=== PATIENT | female | born 2000 | race Caucasian/White ===

== ENCOUNTER 2023-11-07 13:42 | Emergency (ER) | payer OTHER, SELFPAY ==
--- NOTE | ~2023-11-07 | XR_ITS ---
XR thoracic spine 3V DATE: 11/07/2023 14:12 INDICATION: Upper back pain after fall 2 weeks ago TECHNIQUE: AP, lateral, swimmer views COMPARISON: None FINDINGS: There is mild thoracic dextroscoliosis. No fracture or dislocation. The thoracic pedicles a re intact. No paraspinal soft tissue thickening. Thoracic interspaces are preserved. IMPRESSION: Mild dextro scoliosis; no fracture Reviewed, dictated and finalized at location L. [facility]
--- NOTE | 2023-11-07 13:44 | ED.BACK ---
HPI - Back Pain/Injury General Chief Complaint: Back Pain/Injury Stated Complaint: Back pain Time Seen by Provider: 11/07/23 13:44 Source: patient Mode of arrival: ambulatory Limitations: no limitations History of Present Illness HPI Narrative: Melissa is a 22-year-old female patient presenting to the clinic today with complaints of thoracic back pain. She reports 2 weeks ago she fell down some steps and injured her lower back at that time. States that her lower back has improved however now she is having pain to her thoracic back. She reports that is nontender palpation however when she runs, jumps, and moves certain ways she is having pain. Related Data Home Medications Medication Instructions Recorded Confirmed clindamycin phosphate 2 % vaginal 1 applic vaginal DIRECTED 11/07/23 11/07/23 cream escitalopram oxalate 10 mg tablet 10 mg PO DAILY 11/07/23 11/07/23 norethindrone 1 mg-ethinyl 1 tablet PO DAILY 11/07/23 11/07/23 estradiol 20 mcg (21)-iron 75 mg (7) tablet (Blisovi Fe 10/28 (28)) sertraline 25 mg tablet 25 mg PO DAILY 11/07/23 11/07/23 Allergies Allergy/AdvReac Type Severity Reaction Status Date / Time No Known Allergies Allergy Verified 11/07/23 14:04 Review of Systems Review of Systems: Pertinent positives per HPI. Patient denies any fever, chills, rash, headache, visual changes, dizziness, cough, runny nose, sore throat, shortness of breath, chest pain, palpitations, nausea, vomiting, diarrhea, constipation, abdominal pain, or any urinary issues. PMFSH Comments At the time of my signature, I reviewed and agree with the nursing past medical, surgical, social, and family history. There is no relevant family history pertinent to the patient complaint. Exam Narrative: General: Well-developed, well nourished, in no apparent distress Head: Normocephalic, atraumatic. Cardio: Regular rate and rhythm, s1 and s2 normal, no murmur appreciated. Resp: Clear to auscultation bilaterally, no rhonchi, rales, wheezing or rubs. Musculoskeletal: No deformity, tender to palpation over the upper thoracic spine in between the shoulder blades., grossly normal range of motion, muscle strength strong and equal, peripheral pulse strong, no edema, no cyanosis, normal gait and station Course Course Emergency Course: Portions of this record may have been created with voice recognition software. Level of Care: Express Care Visit Vital Signs Vital signs: Vital signs reviewed MDM - Back Pain/Injury MDM Narrative Medical decision making narrative: At the time of visit patient is resting comfortably on the exam table. Patient appears to be nontoxic. Diagnostics: X-ray of the thoracic spine was performed. Plan: supportive measures were discussed with the patient and they voiced understanding discharge instructions and agrees to treatment plan. Return precautions reviewed Imaging Data Radiologist's impression: ITS Impressions Thoracic Spine X-Ray 11/07/23 14:15 IMPRESSION: Mild dextro scoliosis; no fracture Discharge Plan Discharge Clinical Impression: Strain of muscle and tendon of back wall of thorax, initial encounter Patient Disposition: Home, Self-Care Condition: Stable Instructions: Antibiotic Form, Thoracic Back Strain (ED) Additional Instructions: X-ray of the thoracic spine shows mild dextroscoliosis without fracture Take any prescription medication only as prescribed-take 600 mg of ibuprofen every 8 hours x1 week. May use heat or ice to the affected area Consider massage or chiropractor adjustment if this was discussed with provider May use blue emu, lidocaine patches, or asper cream to affected area- do not apply heat or ice directly over cream- can cause burn. Complete appropriate back stretching exercises. Follow up with your PCP in 3-5 days if symptom persist. Prescriptions: No Action norethindrone-e.estradiol-iron [Blisovi Fe
[2023-11-07 13:53] VITALS: BP 130/82; PULSE 84; RESP 20; TEMP 36.3; O2SAT 100
== END 2023-11-07 14:30 | disposition home or self-care (01) ==
PROVIDERS: Emergency Provider Nurse Practitioner Family; PCP Internal Medicine
DX: S29.012A Strain of muscle and tendon of back wall of thorax, initial encounter (principal); X58.XXXA Exposure to other specified factors, initial encounter; F32.A Depression, unspecified
CPT/HCPCS: 72072; 99213; G0463

== ENCOUNTER 2023-11-26 08:22 | Emergency (ER) | payer OTHER, SELFPAY ==
[2023-11-26 08:38] VITALS: BP 113/82; PULSE 71; RESP 16; TEMP 36.6; O2SAT 100
--- NOTE | 2023-11-26 09:04 | ED.URI ---
HPI - URI/Sore Throat General Chief Complaint: Upper Respiratory Infection Stated Complaint: Cold symptoms Source: patient, RN notes reviewed and old records reviewed Mode of arrival: ambulatory Limitations: no limitations History of Present Illness HPI Narrative: 22 year female presents to [facility] with complaint of cough, congestion, sore throat, ear pressure this started 6 days ago. Patient states symptoms are improving but feels cough is worsening. Patient states he is in school and needs something for cough. Patient denies chest pain, shortness of breath, dizziness, weakness, fever. Related Data Home Medications Medication Instructions Recorded Confirmed clindamycin phosphate 2 % vaginal 1 applic vaginal DIRECTED 11/07/23 11/26/23 cream escitalopram oxalate 10 mg tablet 10 mg PO DAILY 11/07/23 11/26/23 norethindrone 1 mg-ethinyl 1 tablet PO DAILY 11/07/23 11/26/23 estradiol 20 mcg (21)-iron 75 mg (7) tablet (Blisovi Fe 10/28 (28)) sertraline 25 mg tablet 25 mg PO DAILY 11/07/23 11/26/23 clotrimazole-betamethasone 1 1 applic topical DIRECTED 11/26/23 11/26/23 %-0.05 % topical cream Allergies Allergy/AdvReac Type Severity Reaction Status Date / Time No Known Allergies Allergy Verified 11/26/23 08:57 Review of Systems Constitutional: Constitutional: Reports no additional constitutional complaints, Denies body ache(s), Denies chills, Denies fatigue, Denies fever(s) and Denies headache(s) Eyes: Eyes: Reports no additional eye complaints and Denies blurry vision ENT: Reports system reviewed and no additional complaints, except as documented, Denies vertigo, Denies dizziness, Denies ear discharge, Reports otalgia, Denies facial pain, Denies headache(s), Reports nasal congestion, Reports nasal discharge, Denies sinus pain, Reports sinus pressure and Reports sore throat Cardiovascular: Cardiovascular: Reports no additional cardiovascular complaints, Denies chest pain, Denies chest pain at rest, Denies rapid heart rate and Denies dyspnea Respiratory: Respiratory: Reports no additional respiratory complaints, Denies chest congestion, Reports cough, Denies pain on inspiration, Denies pain with cough and Denies dyspnea Gastrointestinal: Gastrointestinal: Denies abdominal pain, Denies diarrhea, Denies nausea and Denies vomiting Integumentary/Breasts: Skin/Breast: Denies rash Neurologic: Reports system reviewed and no additional complaints, except as documented, Denies vertigo, Denies dizziness and Denies headache(s) Endocrine: Endocrine: Denies fatigue PMFSH Comments At the time of my signature, I reviewed and agree with the nursing past medical, surgical, social, and family history. There is no relevant family history pertinent to the patient complaint. Exam Const: General: cooperative, healthy appearing, no acute distress and well nourished Nutritional Appearance: well nourished Orientation/consciousness: patient oriented x3 Limitations: no limitations HENMT: Head: normal to inspection and normocephalic Ears: external ears normal, TM's normal bilaterally, EAC's normal and mastoids normal Face/Nose/Sinus: normal facial exam Face and sinus: normal facial exam Mouth: Yes Normal oral and palatal mucosa present, Yes oropharynx normal and Yes moist mucous membranes Throat: posterior oropharynx normal, tonsils normal, uvula midline and no uvular edema Eyes: General: appearance normal, both eyes and all related structures Sclera: sclerae normal Pupils: Equal, round and reactive pupils present Resp: Effort & Inspection: normal respiratory effort, able to speak in complete sentences, no audible wheezes, no cough, no respiratory distress and no retractions Auscultation: clear to auscultation bilaterally, no crackles, no rales, no rhonchi and no wheezes Cardio: Rate: regular rate Rhythm: regular rhythm Skin: General skin exam: normal color and no rashes or lesions noted Neuro: General: patient anastacia
== END 2023-11-26 09:12 | disposition home or self-care (01) ==
PROVIDERS: Emergency Provider Registered Nurse
DX: B34.9 Viral infection, unspecified (principal); Z79.899 Other long term (current) drug therapy
CPT/HCPCS: 87081; 87880; 99213; G0463

== ENCOUNTER 2023-12-22 22:59 | Emergency (ER) | payer OTHER, SELFPAY ==
--- NOTE | ~2023-12-22 | XR_ITS ---
EXAMINATION: XR chest 2V DATE: 12/22/2023 23:49 INDICATION: Chest pain and palpitations TECHNIQUE: PA and lateral views of the chest were obtained. COMPARISON: None FINDINGS: The lungs are clear with no focal airspace opacities, pulmonary edema, pleural effusion or pneumothor ax. The cardiomediastinal silhouette is normal. Visualized bones and soft tissues are unremarkable. IMPRESSION: 1. No acute cardiopulmonary disease. Reviewed, dictated and finalized at location A.
--- NOTE | 2023-12-22 23:00 | ECG_ITS ---
Measurements Intervals [place] Rate: 73 P: 66 NV: 141 QRS: 93 QRSD: 101 T: 47 QT: 406 QTc: 448 Interpretive Statements SINUS RHYTHM WITH SINUS ARRHYTHMIA RIGHT AXIS DEVIATION INCOMPLETE RIGHT BUNDLE BRANCH BLOCK MINIMAL Q WAVES- INF/LAT LEADS BORDERLINE ECG NO PREVIOUS ECG AVAILABLE FOR COMPARISON Electronically Signed On 12-23-2023 7:50:45 CDT by Jevon Rose D.O.
[2023-12-22 23:04] VITALS: BP 115/74; PULSE 76; RESP 14; TEMP 36.4; O2SAT 100
[2023-12-22 23:18] LABS: Basophils Absolute Auto 0.1 K/mm3 (0.0-0.1); Basophils Percent Auto 0.7 % (0.2-1.2); Eosinophils Absolute Auto 0.3 K/mm3 (0-0.3); Eosinophils Percent Auto 2.8 % (0-4.4); Hematocrit 40.6 % (37.0-47.0); Immature Granulocyte Absolute 0.01 K/mm3 (0.00-0.031); Immature Granulocyte Percent A 0.1 % (0-0.5); Lymphocytes Percent Auto 45.4 % (18.3-44.2); Mean Corpuscular Hemoglobin 27.5 pg (26-34); Mean Corpuscular Volume 85.8 fl (80-100); Mean Platelet Volume 8.8 fl (7.4-10.4); Monocytes Absolute Auto 0.6 K/mm3 (0.1-0.6); Monocytes Percent Auto 6.5 % (2.6-8.5); Neutrophils Absolute Auto 3.9 K/mm3 (1.3-6.7); Neutrophils Percent Auto 44.5 % (45.5-73.1); Platelet Count Result 210 k/mm3 (150-375); Red Blood Count 4.73 M/mm3 (4.2-5.4); Red Cell Distribution Width 13.1 % (11.5-14.5); White Blood Count 8.8 K/mm3 (4.5-10.0)
[2023-12-22 23:28] LABS: Prothrombin Time 13.4 Seconds (11.1-14.7)
[2023-12-22 23:29] LABS: Partial Thromboplastin Time 32.9 Seconds (22.3-36.8)
[2023-12-22 23:31] LABS: Alanine Aminotransferase 47 U/L (6-35); Albumin Level 4.6 g/dL (3.5-5.1); Alkaline Phosphatase 62 U/L (38-126); Anion Gap 9 mmol/L (8-16); Aspartate Amino Transferase 33 U/L (14-36); Bilirubin,Total 0.3 mg/dL (0.2-1.3); Blood Urea Nitrogen 9 mg/dL (7-17); Calcium 9.5 mg/dL (8.4-10.2); Carbon Dioxide 25 mmol/L (22-30); Chloride 103 mmol/L (98-107); Estimated CRCL calculation 85 ml/min; Estimated Glomerular Filt Rate > 60; Glucose 111 mg/dL (65-110); Lipase 68 U/L (23-300); Potassium 3.8 mmol/L (3.4-5.0); Sodium 137 mmol/L (137-145)
[2023-12-22 23:41] LABS: Troponin I < 0.012 ng/mL (0.000-0.034)
[2023-12-23 00:07] VITALS: O2SAT 100
--- NOTE | 2023-12-23 02:31 | ED.CHESTPAIN ---
HPI - Chest Pain General Chief Complaint: Chest Pain Stated Complaint: chest pain/palpitations Time Seen by Provider: 12/23/23 02:30 History of Present Illness HPI narrative: Patient is a 23-year-old female who presents to the emergency department this morning complaining of palpitations. Patient admits that she has been getting palpitations since she was in high school a few years of. States that in college she did go to the emerged and blood work, chest x-ray and workup all came back negative. Patient states that she never followed up with a stripper printed circuit boards as these episodes do not happen frequently and have not affected her lifestyle but states that today they were happening frequent enough to concern her which finally prompted her to come to the emergency department for further evaluation. Patient is denying any current chest pain but states that sometimes she does some ribcage pain that she describes as nerve like pain. Patient denies any family history arrhythmias or sudden cardiac , admits to family history of coronary artery disease. Patient denies any shortness of breath, lightheadedness, dizziness, focal weakness, numbness and tingling. Patient states that she recently started Zoloft for anxiety approximately 3-4 days ago and was if that could be contributing to her symptoms. She does admit to history of anxiety. There are no other modifying, alleviating, or precipitating factors at this time. Related Data Home Medications Medication Instructions Recorded Confirmed clindamycin phosphate 2 % vaginal 1 applic vaginal DIRECTED 11/07/23 11/26/23 cream escitalopram oxalate 10 mg tablet 10 mg PO DAILY 11/07/23 11/26/23 norethindrone 1 mg-ethinyl 1 tablet PO DAILY 11/07/23 11/26/23 estradiol 20 mcg (21)-iron 75 mg (7) tablet (Blisovi Fe 10/28 (28)) sertraline 25 mg tablet 25 mg PO DAILY 11/07/23 11/26/23 clotrimazole-betamethasone 1 1 applic topical DIRECTED 11/26/23 11/26/23 %-0.05 % topical cream Allergies Allergy/AdvReac Type Severity Reaction Status Date / Time No Known Allergies Allergy Verified 12/23/23 00:07 Review of Systems Review of Systems: All systems are reviewed and are negative unless stated otherwise in the HPI. Exam Narrative: General: Alert, awake, afebrile, in no acute distress. HEENT: PERRL, no rhinorrhea, no post nasal drip, oropharynx clear. Neck: Trachea midline, no JVD, no lymphadenopathy. Cardiovascular: Regular rate and rhythm, no murmurs, rubs or gallops, no peripheral edema. Respiratory: Clear to auscultation bilaterally, no tachypnea, no wheezing, no rhonchi, no rubs, no respiratory distress. Abdomen: Soft, nontender, nondistended, no rebound, no guarding, no peritoneal signs. Musculoskeletal: No joint swelling or deformity, normal muscle tone. Skin: No rashes or petechia, no signs of infection. Psychiatric: Alert and oriented, normal behavior and judgment for situation. Neurological: Alert and oriented to person, place, and time. Follows all commands. No focal deficits, speech is clear and fluent. Course Vital Signs Vital signs: Vital Signs Temperature 97.6 F 12/22/23 23:04 Pulse Rate 76 12/22/23 23:04 Respiratory Rate 14 12/22/23 23:04 Blood Pressure 115/74 12/22/23 23:04 Pulse Oximetry 100 12/22/23 23:04 Oxygen Delivery Room Air 12/22/23 23:04 Temperature 97.6 F 12/22/23 23:04 Pulse Rate 76 12/22/23 23:04 Respiratory Rate 14 12/22/23 23:04 Blood Pressure 115/74 12/22/23 23:04 Pulse Oximetry 100 12/23/23 00:07 Oxygen Delivery Room Air 12/23/23 00:07 MDM - Chest Pain MDM Narrative Medical decision making narrative: The patient was evaluated by myself in the emergency department. History is obtained from patient who is an independent historian and physical exam was performed. External medical records were reviewed at this time. IV was established and pertinent tests were ordered. EKG was obtained
[2023-12-23 03:08] VITALS: BP 119/96; PULSE 65; RESP 19; O2SAT 100
== END 2023-12-23 03:11 | disposition home or self-care (01) ==
PROVIDERS: Emergency Medicine; Emergency Provider Emergency Medicine; PCP Internal Medicine
DX: R00.2 Palpitations (principal); R07.89 Other chest pain; F41.9 Anxiety disorder, unspecified; I45.10 Unspecified right bundle-branch block
CPT/HCPCS: 36415; 71046; 80053; 83690; 84484; 85025; 85610; 85730; 93005; 99284